=== PATIENT | male | born 1995 | race African-American/Black ===

== ENCOUNTER 2022-02-02 08:40 | Emergency (ER) | payer SELFPAY ==
[2022-02-02] MEDS ORDERED: Sodium Chloride 0.9% 1,000 ML IV STA (08:58)
[2022-02-02 09:30] LABS: CARBON DIOXIDE,CO2 18.6 mmol/L (21.0-32.0); POTASSIUM,K 3.9 mmol/L (3.5-5.1)
== END 2022-02-02 10:19 | disposition home or self-care (01) ==
LOC: MW.ED 08:40
DX: K92.2 Gastrointestinal hemorrhage, unspecified (principal); F17.210 Nicotine dependence, cigarettes, uncomplicated
CPT/HCPCS: 36415; 80053; 80307; 83605; 83690; 83735; 84484; 85025; 93005; 96360; 99285; J7030; 93010; 99284

== ENCOUNTER 2022-05-30 09:47 | Emergency (ER) | payer SELFPAY ==
[2022-05-30] MEDS ORDERED: Sodium Chloride 0.9% 1,000 ML IV ONE (10:30)
[2022-05-30] MEDS ORDERED: Ondansetron 4 MG/2 ML SDV IVPUSH ONE (11:31)
[2022-05-30 12:35] LABS: CARBON DIOXIDE,CO2 24.7 mmol/L (21.0-32.0)
== END 2022-05-30 14:04 | disposition home or self-care (01) ==
LOC: MW.ED 09:47
DX: K29.70 Gastritis, unspecified, without bleeding (principal)
CPT/HCPCS: 36415; 71045; 80053; 81003; 82947; 83690; 84443; 85025; 93005; 96361; 96374; 99285; J2405; J7030

== ENCOUNTER 2022-08-22 07:04 | Emergency (ER) | payer SELFPAY ==
[2022-08-22 09:28] LABS: ACETAMINOPHEN <2.0 ug/mL; BLOOD UREA NITROGEN,BUN 6 mg/dL (7.0-18.0); CARBON DIOXIDE,CO2 28.6 mmol/L (21.0-32.0); CHLORIDE,CL 104 mmol/L (98-107); GLUCOSE RANDOM 80 mg/dL (74-106); POTASSIUM,K 4.2 mmol/L (3.5-5.1); SODIUM,NA 140 mmol/L (136-148)
[2022-08-22 09:43] LABS: ESTIMATED GFR 120 mL/min (>60)
== END 2022-08-22 09:48 | disposition home or self-care (01) ==
LOC: MW.ED 07:04
DX: F32.A Depression, unspecified (principal); F10.10 Alcohol abuse, uncomplicated; F17.210 Nicotine dependence, cigarettes, uncomplicated
CPT/HCPCS: 36415; 80053; 80143; 80179; 80305-QW; 80307; 81001; 83735; 85025; 99283